=== PATIENT | female | born 1990 | race Caucasian/White ===

== ENCOUNTER → 2017-08-04 | Outpatient (CLI) | payer BC, OTHER ==
[~2017-08-04] MED LIST: ALPR0.5T PO; CYCL-331 PO; HYDR-2766 PO; OXYC-323 PO; VARE0.5T PO
== END | disposition home or self-care (01) ==
LOC: SURG 14:26
PROVIDERS: ATTEND Anesthesiology
DX: M47.896 Other spondylosis, lumbar region (principal); R51 Headache
CPT/HCPCS: 99204

== ENCOUNTER → 2017-08-04 | Outpatient (CLI) | payer BC, OTHER ==
[2017-08-04 16:59] LABS: BARBITURATES NEG (NEG); BENZODIAZEPINES POS (NEG); CANNABINOIDS NEG (NEG); COCAINE NEG (NEG); METHADONE NEG (NEG); OPIATES NEG (NEG); PHENCYCLIDINE NEG (NEG)
[2017-08-04 17:02] LABS: AMPHETAMINE/METHAMPHETAMINE POS (NEG)
== END | disposition home or self-care (01) ==
LOC: LAB 15:33
PROVIDERS: ATTEND Anesthesiology
DX: M47.896 Other spondylosis, lumbar region (principal); R51 Headache
CPT/HCPCS: 36415; 80307; G0479

== ENCOUNTER → 2018-03-18 | Outpatient (CLI) | payer BC, OTHER ==
[~2018-03-18] MED LIST changes: +BUPIVACAINE MPF 0.5% 30 ML VIAL. ONE; +LIDOCAINE 1% PF 30 ML VIAL. ONE
== END ==
LOC: SURG 11:50
PROVIDERS: ATTEND Anesthesiology Pain Medicine
DX: M47.814 Spondylosis without myelopathy or radiculopathy, thoracic region (principal); Z72.89 Other problems related to lifestyle; Z72.0 Tobacco use; Z87.39 Personal history of other diseases of the musculoskeletal system and connective tissue
CPT/HCPCS: 64490; 64491; 64492; J2001; J3490

== ENCOUNTER → 2018-05-14 | Outpatient (CLI) | payer BC ==
[~2018-05-14] MED LIST changes: -BUPIVACAINE MPF 0.5% 30 ML VIAL. ONE; -LIDOCAINE 1% PF 30 ML VIAL. ONE
== END | disposition home or self-care (01) ==
LOC: SURG 08:12
PROVIDERS: ATTEND Anesthesiology Pain Medicine
DX: M47.814 Spondylosis without myelopathy or radiculopathy, thoracic region (principal); M51.35 Other intervertebral disc degeneration, thoracolumbar region; F11.90 Opioid use, unspecified, uncomplicated; G89.4 Chronic pain syndrome; Z87.39 Personal history of other diseases of the musculoskeletal system and connective tissue
CPT/HCPCS: 99214

== ENCOUNTER 2018-09-24 07:02 | Emergency (ER) | payer BC ==
[~2018-09-24] VITALS: Ht 177.8 cm; Wt 59.3 kg
[2018-09-24 07:02] VITALS: BP 126/99
[2018-09-24] MEDS ORDERED: MELO7.5T29 PO (07:20)
[2018-09-24] MEDS ORDERED: PRED50TA PO (07:20)
[2018-09-24] MEDS ORDERED: AMOX500T PO (07:20)
--- NOTE | 2018-09-24 07:21 | PHYS DOC ---
Past History Past Medical History: Anxiety Past Surgical History: Other Additional Past Surgical Histo: back ablation 3 Smoking: Less than 1pk/day Alcohol Use: None Drug Use: None Adult General Chief Complaint Chief Complaint: SORE THROAT HPI HPI Patient is a 28 year old [female] who presents with sore throat. This started 2 days ago and has been getting worse over time. Increased pain with swallowing. MAXIMUM TEMPERATURE of 102. No significant relief with ibuprofen nor acetaminophen. Patient does have previous history of tonsillectomy. Mild nasal congestion, made worse by crying due to the pain. 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 Reports the pain is severe.[] Review of Systems Review of Systems Constitutional: Reports fever, denies chills[] Eyes: Denies change in visual acuity, redness, or eye pain [] HENT: See history of present illness[] Respiratory: Denies cough or shortness of breath [] Cardiovascular: No chest pain or palpitations[] GI: Denies abdominal pain, nausea, vomiting, bloody stools or diarrhea [] : Denies dysuria or hematuria [] Musculoskeletal: Denies back pain or joint pain [] Integument: Denies rash or skin lesions [] Neurologic: Denies headache, focal weakness or sensory changes [] Endocrine: Denies polyuria or polydipsia [] All other systems were reviewed and found to be within normal limits, except as documented in this note. Allergies Allergies Allergies Coded Allergies Type Severity Reaction Last Updated Verified sulfamethoxazole Allergy Severe Anaphylaxis 10/29/13 Yes trimethoprim Allergy Severe Anaphylaxis 10/29/13 Yes Sulfa (Sulfonamide Antibiotics) Allergy Unknown 10/29/13 Yes Physical Exam Physical Exam Constitutional: Well developed, well nourished, no acute distress, non-toxic appearance. [] HENT: Normocephalic, atraumatic, bilateral external ears normal, oropharynx moist, uvula is midline, no oral petechiae, erythema of the posterior pharynx, nose normal. [] Eyes: PERRLA, EOMI, conjunctiva normal, no discharge. [] Neck: Normal range of motion, no tenderness, supple, no stridor. [] Cardiovascular:Heart rate regular rhythm, no murmur [] Lungs & Thorax: Bilateral breath sounds clear to auscultation [] Abdomen: Not evaluated[] Skin: Warm, dry, no erythema, no rash. [] Back: No tenderness, no CVA tenderness. [] Extremities: No tenderness, no cyanosis, no clubbing, ROM intact, no edema. [] Neurologic: Alert and oriented X 3, normal motor function, normal sensory function, no focal deficits noted. [] Psychologic: Affect normal, judgement normal, mood normal. [] EKG EKG [] Radiology/Procedures Radiology/Procedures [] Course & Med Decision Making Course & Med Decision Making Pertinent Labs and Imaging studies reviewed. (See chart for details) Medical decision-making there does not appear to be a peritonsillar abscess, no meningitis or encephalitis, patient is nontoxic in appearance. ED course: Patient arrived, was placed in bed, tolerated exam well. Patient was discharged in improved condition.[] Dragon Disclaimer Dragon Disclaimer This electronic medical record was generated, in whole or in part, using a voice recognition dictation system. Departure Departure: Impression: Primary Impression: Pharyngitis Disposition: HOME, SELF-CARE Condition: GOOD Referrals: MANAN BURCH (PCP) Follow-up in 2 days Patient Instructions: Viral and Bacterial Pharyngitis Additional Instructions: Drink plenty of fluids. Follow-up with your regular doctor in 2 days. Return to the ER if worsening pain, unable to swallow, or any other concerns. Scripts Meloxicam (MELOXICAM) 7.5 Mg Tablet 7.5 MG PO DAILY for PAIN, #20 TAB Prov: YONATANSUNNI DO 09/24/18 Prednisone (PREDNISONE) 50 Mg Tablet 1 TAB PO DAILY for PHARYNGITIS, #5 TAB Prov: SUNNI TAM DO 09/24/18 Amoxicillin (AMOXICILLIN) 500 Mg Tablet 1 TAB PO TID for PHARYNGITIS, #30 TAB Prov: SUNNI TAM DO 09/24/18 Problem Qualifiers Primary Impression: Pharyngitis Pharyngitis/tonsillitis etiology: unspecified etiology Qualified Codes: J02.9 - Acute pharyngitis, unspecified SUNNI TAM DO Sep 24, 2018 07:21
== END 2018-09-24 07:24 | disposition home or self-care (01) ==
LOC: ER 07:02
DX: J02.9 Acute pharyngitis, unspecified (principal); F41.9 Anxiety disorder, unspecified; F17.200 Nicotine dependence, unspecified, uncomplicated; Z88.2 Allergy status to sulfonamides; Z88.1 Allergy status to other antibiotic agents
CPT/HCPCS: 99283

== ENCOUNTER → 2019-08-29 | Outpatient (CLI) | payer BC ==
[~2019-08-29] MED LIST changes: +AMOX500T PO; -HYDR-2766 PO; +HYDR-2769 PO; +MELO7.5T29 PO; -OXYC-323 PO; +OXYC1TAB15 PO; +PRED50TA PO
--- NOTE | 2019-08-30 13:30 | RAD ---
Right knee 3 views. HISTORY: Right knee pain 3 views were taken of the right knee. There is no fracture or osseous abnormality or joint effusion. IMPRESSION: 1. Negative right knee. Electronically signed by: Akash Stevens MD (08/30/2019 1:27 PM) [id number]
== END | disposition home or self-care (01) ==
LOC: PMG 15:54
PROVIDERS: ATTEND Registered Nurse
DX: M25.561 Pain in right knee (principal)
CPT/HCPCS: 73562

== ENCOUNTER → 2020-11-06 | Outpatient (CLI) | payer BC ==
[~2020-11-06] MED LIST changes: +CEPH500T PO
--- NOTE | 2020-11-06 08:24 | RAD ---
EXAM: Right knee, 3 views. HISTORY: Pain. COMPARISON: None. FINDINGS: 3 views of the right knee are obtained. There is no fracture, dislocation or subluxation. T here is no joint effusion. IMPRESSION: No acute osseous finding. Electronically signed by: Keira Curry MD (11/06/2020 8:22 AM) [id number]
== END ==
LOC: PMG 07:59
PROVIDERS: ATTEND Physician Assistant Medical
DX: M25.561 Pain in right knee (principal)
CPT/HCPCS: 73562

== ENCOUNTER 2021-01-22 19:59 | Emergency (ER) | payer BC ==
[~2021-01-22] VITALS: Ht 177.8 cm; Wt 72.7 kg
[~2021-01-22 19:59] MED LIST changes: -CEPH500T PO
--- NOTE | 2021-01-22 21:48 | PHYS DOC ---
Past History Past Medical History: Anxiety Past Surgical History: Other Additional Past Surgical Histo: back ablation 3 Smoking: Less than 1pk/day Alcohol Use: Occasionally Drug Use: None Adult General Chief Complaint Chief Complaint: BACK PAIN OR INJURY HPI HPI Patient is a 30yo female presenting via POV for bilateral back pain. States she is healthy without any known medical issues or daily meds. Was recently diagnosed with UTI 1 week ago and finished x5 day RX Macrobid ~3 days ago. Nonetheless, patient started developing bilateral lower back/flank pain ever since. She has persistent UTI symptoms. Denies fever, CP, SHOB, AP, incontinence, saddle anesthesia. She has no history of abnormalities Review of Systems Review of Systems Fourteen body systems of review of systems have been reviewed. See HPI for pertinent positives and negative responses, other callahan all other systems are negative, non-pertinent or non-contributory Allergies Allergies Allergies Coded Allergies Type Severity Reaction Last Updated Verified sulfamethoxazole Allergy Severe Anaphylaxis 10/29/13 Yes trimethoprim Allergy Severe Anaphylaxis 10/29/13 Yes Sulfa (Sulfonamide Antibiotics) Allergy Unknown 10/29/13 Yes Physical Exam Physical Exam Constitutional: Well developed, well nourished, mild distress, appears u ncomfortable, non-toxic appearance. HENT: Normocephalic, atraumatic, bilateral external ears normal, oropharynx moist, no oral exudates, nose normal. Eyes: PERRLA, EOMI, conjunctiva normal, no discharge. Neck: Normal range of motion, no tenderness, supple, no stridor. Cardiovascular: Heart rate regular, sinus rhythm, no murmurs rubs or gallops Lungs & Thorax: Bilateral breath sounds clear to auscultation Abdomen: Bowel sounds normal, soft, no tenderness, no guarding or rebound, no masses, no pulsatile masses. Nonsurgical abdomen, no peritoneal signs Skin: Warm, dry, no erythema, no rash. Back: No tenderness, bilateral CVA tenderness. Extremities: No tenderness, no cyanosis, no clubbing, ROM intact, no edema. Neurologic: Alert and oriented X 3, grossly normal motor & sensory function, no focal deficits noted. Psychologic: Anxious mood and affect Current Patient Data Vital Signs Vital Signs Date Time Temp Pulse Resp B/P (MAP) Pulse Ox O2 Delivery O2 Flow Rate FiO2 01/22/21 19:59 98.8 110 18 126/99 (108) 98 Room Air Vital Signs Date Time Temp Pulse Resp B/P (MAP) Pulse Ox O2 Delivery O2 Flow Rate FiO2 01/23/21 00:26 98.8 98 127/85 (99) 99 Room Air 01/22/21 19:59 18 Lab Results Laboratory Tests Test 01/22/21 21:38 01/22/21 21:40 01/22/21 22:50 Urine Collection Type Unknown Urine Color Sobeida Urine Clarity Turbid Urine pH 6.5 Urine Specific Galien 1.015 Urine Protein 100 mg/dl (NEG-TRACE) Urine Glucose (UA) Neg mg/dL (NEG) Urine Ketones (Stick) Neg mg/dL (NEG) Urine Blood Large (NEG) Urine Nitrite Pos (NEG) Urine Bilirubin Small (NEG) Urine Urobilinogen Dipstick 0.2 mg/dL (0.2 mg/dL) Urine Leukocyte Esterase Mod (NEG) Urine RBC 6-10 /HPF (0-2) Urine WBC 20-40 /HPF (0-4) Urine Squamous Epithelial Cells Occ /LPF Urine Bacteria Many /HPF (0-FEW) Urine Mucus Slight /LPF Bedside Urine HCG, Qualitative hcg negative (Negative) White Blood Count 11.5 x10^3/uL (4.0-11.0) Red Blood Count 4.31 x10^6/uL (3.50-5.40) Hemoglobin 14.0 g/dL (12.0-15.5) Hematocrit 41.4 % (36.0-47.0) Mean Corpuscular Volume 96 fL (79-100) Mean Corpuscular Hemoglobin 33 pg (25-35) Mean Corpuscular Hemoglobin Concent 34 g/dL (31-37) Red Cell Distribution Width 13.6 % (11.5-14.5) Platelet Count 190 x10^3/uL (140-400) Neutrophils (%) (Auto) 61 % (31-73) Lymphocytes (%) (Auto) 24 % (24-48) Monocytes (%) (Auto) 11 % (0-9) Eosinophils (%) (Auto) 2 % (0-3) Basophils (%) (Auto) 1 % (0-3) Neutrophils # (Auto) 7.1 x10^3uL (1.8-7.7) Lymphocytes # (Auto) 2.8 x10^3/uL (1.0-4.8) Monocytes # (Auto) 1.3 x10^3/uL (0.0-1.1) Eosinophils # (Auto) 0.2 x10^3/uL (0.0-0.7) Basophils # (Auto) 0.1 x10^3/uL (0.0-0.2) Sodium Level 137 mmol/L (136-145) Potassium Level 3.1 mmol/L (3.5-5.1) Chloride Level 99 mmol/L (98-107) Carbon Dioxide Level 32 mmol/L (21-32) Anion Gap 6 (6-14) Blood Urea Nitrogen 5 mg/dL (7-20) Creatinine 0.6 mg/dL (0.6-1.0) Estimated GFR (Cockcroft-Gault) 115.9 Glucose Level 85 mg/dL (70-99) Calcium Level 8.9 mg/dL (8.5-10.1) EKG EKG [] Radiology/Procedures Radiology/Procedures [] Heart Score C/O Chest Pain: No Risk Factors: Risk Factors: DM, Current or recent (<one month) smoker, HTN, HLP, family history of CAD, obesity. Risk Scores: Risk Factors: DM, Current or recent (<one month) smoker, HTN, HLP, family history of CAD, obesity. Course & Med Decision Making Course & Med Decision Making Afebrile patient with HPI and PE concerning for pyelonephritis ER workup performed and indicative of pyelonephritis. Discussed potential need for CT imaging; however, joint decision to defer at this time Patient responded to ER intervention that included IV pain medication and Keflex. Discussed inpatient vs outpatient mgmt. She is ambulatory and tolerating PO, she is wanting to go home with PO antibiotics and close outpatient follow- up which is reasonable RX Keflex, instructions to use NSAIDs/tylenol PRN pain, cyclobenzaprine for PRN muscle spasms, and close PCP follow-up instructed I did disclose further imaging studies and/or need for IV intervention could be required. Strict return precautions were discussed at length with good understanding, all questions and concerns addressed prior to departure Dragon Disclaimer Dragon Disclaimer This electronic medical record was generated, in whole or in part, using a voice recognition dictation system. Departure Departure: Impression: Primary Impression: Pyelonephritis Disposition: 01 DC HOME SELF CARE/HOMELESS Condition: IMPROVED Referrals: MANAN BURCH (PCP) Patient Instructions: Pyelonephritis, Adult Additional Instructions: You were seen for sequelae of a urinary tract infection that is concerning for pyelonephritis or otherwise known as a kidney infection. Please continue to take newly prescribed antibiotics as prescribed. Follow up with primary care as discussed prior to ER departure for repeat evaluation by the end of the week. You should return to the ED if you develop worsening pain, fever, flank pain, or any other new or concerning symptoms. Scripts Cephalexin (CEPHALEXIN) 500 Mg Tablet 2 TAB PO BID for PYELONEPHRITIS for 10 Days, #40 TAB Prov: SHAKIRA GLASGOW DO 01/23/21 SHAKIRA GLASGOW DO Jan 22, 2021 21:48
[2021-01-22 22:19] LABS: BACTERIA,URINE MANY /HPF (0-FEW); BILIRUBIN,URINE SMALL (NEG); CLARITY,URINE TURBID; COLOR,URINE AMBER; GLUCOSE,URINE NEG (NEG); NITRITE,URINE POS (NEG); SQUAMOUS EPITHELIAL CELL,UR OCC /LPF; UROBILINOGEN,URINE 0.2 mg/dL (0.2 mg/dL); WBC,URINE 20-40 /HPF (0-4)
[2021-01-22] MEDS ORDERED: MORPHINE SULFATE 4 MG/ML DISP.SYRIN. ONE (22:44)
[2021-01-22] MEDS ORDERED: MORPHINE SULFATE 4 MG/ML DISP.SYRIN. IV ONE (22:45)
[2021-01-22 23:11] LABS: BASO # 0.1 x10^3/uL (0.0-0.2); BASO % 1 % (0-3); EOS # 0.2 x10^3/uL (0.0-0.7); EOS % 2 % (0-3); HEMATOCRIT 41.4 % (36.0-47.0); LYMPH # 2.8 x10^3/uL (1.0-4.8); LYMPH % 24 % (24-48); MEAN CORPUSCULAR HEMOGLOBIN 33 pg (25-35); MEAN CORPUSCULAR HGB CONC 34 g/dL (31-37); MEAN CORPUSCULAR VOLUME 96 fL (79-100); MONO # 1.3 x10^3/uL (0.0-1.1); MONO % 11 % (0-9); NEUT # 7.1 x10^3uL (1.8-7.7); NEUT % 61 % (31-73); PLATELET COUNT 190 x10^3/uL (140-400); RED BLOOD COUNT 4.31 x10^6/uL (3.50-5.40); RED CELL DISTRIBUTION WIDTH 13.6 % (11.5-14.5); WHITE BLOOD COUNT 11.5 x10^3/uL (4.0-11.0)
[2021-01-22 23:20] LABS: CALCIUM 8.9 mg/dL (8.5-10.1); CREATININE 0.6 mg/dL (0.6-1.0); GFR 115.9; POTASSIUM 3.1 mmol/L (3.5-5.1)
[2021-01-23] MEDS ORDERED: CEPHALEXIN 250 MG CAPSULE PO ONE
[2021-01-23] MEDS ORDERED: CEPH500T PO (00:07)
[2021-01-23] MEDS ORDERED: MORPHINE SULFATE 4 MG/ML DISP.SYRIN. IV ONE (00:15)
[2021-01-23 00:26] VITALS: BP 127/85
[2021-01-23] MEDS ORDERED: CYCLOBENZAPRINE 10MG 4TABLET STARTPACK PO ONE ×2 (00:36→00:45)
[2021-01-23] MEDS ORDERED: POTASSIUM CHLORIDE 20 MEQ TABLET.ER. PO ONE (00:45)
== END 2021-01-23 00:20 | disposition home or self-care (01) ==
LOC: ER 19:59
DX: N12 Tubulo-interstitial nephritis, not specified as acute or chronic (principal); F41.9 Anxiety disorder, unspecified; F17.200 Nicotine dependence, unspecified, uncomplicated; Z88.2 Allergy status to sulfonamides; Z88.1 Allergy status to other antibiotic agents
CPT/HCPCS: 36415; 80048; 81001; 81025; 85025; 87086; 96374; 96376; 99284; J2270

== ENCOUNTER 2021-05-12 11:19 | Emergency (ER) | payer BC ==
[~2021-05-12] VITALS: Ht 177.8 cm; Wt 66.6 kg
[~2021-05-12 11:19] MED LIST changes: +CEPH500T PO
[2021-05-12] MEDS ORDERED: IV NORMAL SALINE 1,000ML 1,000 ML IV SCH (12:00)
[2021-05-12] MEDS ORDERED: MVI, ADULT NO.4 WITH VIT K 10 ML, FOLIC ACID INJ 1 MG, THIAMINE INJ 100 MG in IV NORMAL... IV ONE (12:00)
[2021-05-12] MEDS ORDERED: METOCLOPRAMIDE HCL 10 MG/2 ML VIAL. IVP ONE (12:00)
[2021-05-12] MEDS ORDERED: FAMOTIDINE 20 MG/2 ML VIAL IVP ONE (12:00)
[2021-05-12 12:07] LABS: BASO # 0.1 x10^3/uL (0.0-0.2); BASO % 1 % (0-3); EOS % 0 % (0-3); HEMATOCRIT 46.9 % (36.0-47.0); HEMOGLOBIN 16.1 g/dL (12.0-15.5); LYMPH # 1.8 x10^3/uL (1.0-4.8); LYMPH % 18 % (24-48); MEAN CORPUSCULAR HEMOGLOBIN 33 pg (25-35); MEAN CORPUSCULAR HGB CONC 34 g/dL (31-37); MEAN CORPUSCULAR VOLUME 97 fL (79-100); MONO # 1.1 x10^3/uL (0.0-1.1); MONO % 11 % (0-9); NEUT % 70 % (31-73); PLATELET COUNT 261 x10^3/uL (140-400); RED BLOOD COUNT 4.85 x10^6/uL (3.50-5.40); RED CELL DISTRIBUTION WIDTH 13.3 % (11.5-14.5)
[2021-05-12 12:14] LABS: CALCIUM 9.7 mg/dL (8.5-10.1); CREATININE 0.9 mg/dL (0.6-1.0); GFR 72.6; POTASSIUM 3.2 mmol/L (3.5-5.1)
[2021-05-12 12:20] LABS: ACETAMIN < 2.0 mcg/mL (10-30); SALIC < 2.8 mg/dL (2.8-20.0)
[2021-05-12 12:21] LABS: ALBUMIN 3.4 g/dL (3.4-5.0); DIRECT BILIRUBIN 1.2 mg/dL (0.0-0.2); TOTAL BILIRUBIN 2.3 mg/dL (0.2-1.0); TOTAL PROTEIN 7.6 g/dL (6.4-8.2)
--- NOTE | 2021-05-12 12:33 | EKG ---
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
--- NOTE | 2021-05-12 12:45 | RAD ---
Exam Date: 05/12/2021 12:03 PM XR CHEST 1V Indication: Reason: epigastric pain / Spl. Instructions: / History: . FINDINGS/ IMPRESSION: The cardiac silhouette and pulmonary vasculature are within normal limits. There is no focal consolidation, pleural effusion or pneumothorax. The visualized osseous structures are intact. Electronically signed by: Wayne Blackwood MD (05/12/2021 12:43 PM) [facility]
--- NOTE | 2021-05-12 12:45 | RAD ---
Exam Date: 05/12/2021 12:[address] HEAD AND C-SPINE WO Indication: Reason: hand cramps / Spl. Instructions: / History: . One or more of the following dose reduction techniques were utilized: *Automated exposure control (AEC) *Adjustment of mA and/or kV according to patient size *Use of iterative reconstruction technique *CT scan done according to ALARA, or ALARA/IMAGE GENTLY EXAMINATION: CT OF THE HEAD WITHOUT CONTRAST INDICATION: Trauma, head injury, headache; TECHNIQUE: Noncontrast helical axial CT images of the head were obtained. FINDINGS: The ventricles and sulci are normal for the patient's stated age. There is no evidence of acute int racranial hemorrhage, extra-axial collection, mass effect, midline shift, or acute territorial infarc t. No lesion of the skull base or the calvarium is seen. The visualized paranasal sinuses, mastoid ai r cells, and orbits are normal in appearance. IMPRESSION: No evidence for acute intracranial abnormality. EXAMINATION: CT OF THE CERVICAL SPINE WITHOUT CONTRAST Clinical Indication: Cervical spine pain after trauma Technique: Thin cut helical axial CT images through the cervical spine were obtained without contrast on a multi-detector CT scanner. Source data was then reconstructed into sagittal and coronal planes. Findings: Alignment is maintained without spondylolisthesis. Vertebral body heights are maintained without acute fracture. Disc spaces are preserved. No signific ant prevertebral soft tissue swelling is demonstrated. No severe central canal stenosis is seen. Impression: No evidence of acute cervical spine fracture or subluxation. Electronically signed by: Wayne Blackwood MD (05/12/2021 12:43 PM) [facility]
--- NOTE | 2021-05-12 12:51 | RAD ---
Exam Date: 05/12/2021 12:03 PM XR EXAM OF ANKLE_RIGHT 3VIEWS, XR FOOT_RIGHT 3 VIEWS Indication: Reason: bruise-unknown injury mechanism / Spl. Instructions: / History: . FINDINGS/ IMPRESSION: There is a dorsal fragmented osteophyte along the navicular which appears chronic. There is no signi ficant overlying soft tissue swelling at this site to suggest acute injury. Ankle mortise is intact. There is a 3 x 1 mm calcification along the proximal and lateral corner of the cuboid, seen only on the oblique view, which could represent an avulsion of indeterminate age. Visualized osseous struct ures are otherwise intact. Alignment is maintained. Soft tissues are normal. Electronically signed by: Wayne Blackwood MD (05/12/2021 12:49 PM) [facility]
--- NOTE | 2021-05-12 14:11 | PHYS DOC ---
Past History Past Medical History: Anxiety Past Surgical History: No Surgical History Additional Past Surgical Histo: back ablation 3 Smoking: Less than 1pk/day Alcohol Use: Occasionally Drug Use: None General Adult EDM: Chief Complaint: MULTIPLE COMPLAINTS HPI: HPI: 30 yo F PMH anxiety and tobacco use, presents the ED with complaints of cramping in both hands stating " I feel like they are stuck in this position, am I having a stroke?" Patient reports she drank a large amount of alcohol on Thursday, work on Thursday but had multiple episodes of nonbloody nonbilious vomiting. No complaints of upper abdominal pain stating "I think it's cause I vomited so much." Patient denies any associated fever, chills, nuchal rigidity, blurry vision, sensorimotor deficits, head injury, neck pain, hemoptysis, or hematemesis. Does not feel as if she was roofies or sexually assaulted, has a safe place to return home to. Reports painful bruise over right foot, unsure how it occured but states bruising on her right thigh, "that's been there awhile." Review of Systems: Review of Systems: Constitutional: Denies fever or chills Eyes: Denies change in visual acuity HENT: Denies nasal congestion or sore throat Respiratory: Denies cough or shortness of breath Cardiovascular: Denies chest pain or edema GI: Denies bloody stools or diarrhea : Denies dysuria or vaginal bleeding Musculoskeletal: Denies back pain or joint deformity Integument: Denies rash or diaphoresis Neurologic: Denies headache, neck pain, focal weakness or sensory changes Endocrine: Denies polyuria or polydipsia Lymphatic: Denies swollen glands Psychiatric: Denies depression or anxiety Current Medications: Current Meds: Current Medications Medications (Trade) Dose Ordered Sig/Thomas Start Time Stop Time Status Last Admin Dose Admin Famotidine (Pepcid Vial) 20 mg 1X ONCE 05/12/21 12:00 05/12/21 12:07 DC 05/12/21 12:00 20 MG Metoclopramide HCl (Reglan Vial) 10 mg 1X ONCE 05/12/21 12:00 05/12/21 12:07 DC 05/12/21 12:00 10 MG Multivitamins/ Minerals 10 ml/ Folic Acid 1 mg/ Thiamine HCl 100 mg/Sodium Chloride 1,011.3 ml @ 1,000.187 mls/hr 1X ONCE 05/12/21 12:00 05/12/21 13:00 DC 05/12/21 12:00 1,000.187 MLS/HR Sodium Chloride 1,000 ml @ 1,000 mls/hr Q1H 05/12/21 12:00 05/12/21 12:59 DC 05/12/21 12:00 1,000 MLS/HR Allergies: Allergies: Allergies Coded Allergies Type Severity Reaction Last Updated Verified sulfamethoxazole Allergy Severe Anaphylaxis 10/29/13 Yes trimethoprim Allergy Severe Anaphylaxis 10/29/13 Yes Sulfa (Sulfonamide Antibiotics) Allergy Unknown 10/29/13 Yes Physical Exam: PE: Constitutional: Unkept disheveled appearance, appears malnourished, afebrile, and in no distress HENT: Normocephalic, atraumatic, very dry mucous membranes Eyes: EOMI, conjunctiva normal, no discharge. Neck: Normal range of motion, supple, Cardiovascular: S1/2 present, tachycardic Lungs & Thorax: Speaking in full sentences, bilateral equal chest rise, no tachypnea or increased work of breathing Abdomen: soft, no reproducible tenderness, no peritoneal signs, no Gonzalez's sign, no McBurney's point tenderness Skin: Warm, dry, yellow contusion of the right thigh approximately 10 x 10 cm, multiple small contusions over both extremities, large contusion approximately 80 to 90% of dorsal aspect of right foot, Back: No midline step-offs or tenderness, no CVA tenderness, no contusions on back or chest or abdomen or upper extremity Extremities: no cyanosis, no lower extremity edema, DP/PT intact, equal radial pulses, no plantar ecchymosis, no joint deformities, no pain at right malleoli lateral or medial/right fibular head or knee, both hands with finger stuck in flexion-can extend-no decreased range of motion Neurologic: Alert and oriented X 3, normal motor function, normal sensory function, no focal deficits noted. [] Psychologic: Affect normal, judgement normal, mood normal. [] Nexus C-spine criteria are negative: There is no post midline tenderness, the patient is not intoxicated, there is a normal level of alertness, there are no focal neurologic deficits and there are no distracting injuries. Current Patient Data: Labs: Laboratory Tests Test 7/11/21 11:30 White Blood Count 10.0 x10^3/uL (4.0-11.0) Red Blood Count 4.85 x10^6/uL (3.50-5.40) Hemoglobin 16.1 g/dL (12.0-15.5) H Hematocrit 46.9 % (36.0-47.0) Mean Corpuscular Volume 97 fL (79-100) Mean Corpuscular Hemoglobin 33 pg (25-35) Mean Corpuscular Hemoglobin Concent 34 g/dL (31-37) Red Cell Distribution Width 13.3 % (11.5-14.5) Platelet Count 261 x10^3/uL (140-400) Neutrophils (%) (Auto) 70 % (31-73) Lymphocytes (%) (Auto) 18 % (24-48) L Monocytes (%) (Auto) 11 % (0-9) H Eosinophils (%) (Auto) 0 % (0-3) Basophils (%) (Auto) 1 % (0-3) Neutrophils # (Auto) 7.0 x10^3uL (1.8-7.7) Lymphocytes # (Auto) 1.8 x10^3/uL (1.0-4.8) Monocytes # (Auto) 1.1 x10^3/uL (0.0-1.1) Eosinophils # (Auto) 0.0 x10^3/uL (0.0-0.7) Basophils # (Auto) 0.1 x10^3/uL (0.0-0.2) Sodium Level 145 mmol/L (136-145) Potassium Level 3.2 mmol/L (3.5-5.1) L Chloride Level 93 mmol/L (98-107) L Carbon Dioxide Level 37 mmol/L (21-32) H Anion Gap 15 (6-14) H Blood Urea Nitrogen 4 mg/dL (7-20) L Creatinine 0.9 mg/dL (0.6-1.0) Estimated GFR (Cockcroft-Gault) 72.6 Glucose Level 125 mg/dL (70-99) H Calcium Level 9.7 mg/dL (8.5-10.1) Total Bilirubin 2.3 mg/dL (0.2-1.0) H Direct Bilirubin 1.2 mg/dL (0.0-0.2) H Aspartate Amino Transferase (AST) 134 U/L (15-37) H Alanine Aminotransferase (ALT) 87 U/L (14-59) H Alkaline Phosphatase 323 U/L (46-116) H Creatine Kinase 878 U/L (26-192) H Troponin I Quantitative < 0.017 ng/mL (0-0.055) Total Protein 7.6 g/dL (6.4-8.2) Albumin 3.4 g/dL (3.4-5.0) Lipase 72 U/L (73-393) L Salicylates Level < 2.8 mg/dL (2.8-20.0) L Salicylate Last Dose Date Unknown Salicylate Last Dose Time Unknown Acetaminophen Level < 2.0 mcg/mL (10-30) L Acetaminophen Last Dose Date Unknown Acetaminophen Last Dose Time Unknown Vital Signs: Vital Signs Date Time Temp Pulse Resp B/P (MAP) Pulse Ox O2 Delivery O2 Flow Rate FiO2 05/12/21 12:52 77 18 125/73 (90) 97 Room Air 05/12/21 11:20 98.1 EKG: EKG: Sinus tachycardia 113 bpm, no axis deviation, QTC 496, poor baseline, reports no active chest pain Radiology/Procedures: Radiology/Procedures: IMAGING REPORT Signed PATIENT: SHE ONEILL ACCOUNT: [id number] : 1990 LOCATION: ER AGE: 30 SEX: F EXAM STATUS: REG ER ORD. PHYSICIAN: MANAN CARPENTER DO REASON: hand cramps PROCEDURE: CT HEAD AND CERVICAL SPINE WO Exam Date: 05/12/2021 12:[address] HEAD AND C-SPINE WO Indication: Reason: hand cramps / Spl. Instructions: / History: . One or more of the following dose reduction techniques were utilized: *Automated exposure control (AEC) *Adjustment of mA and/or kV according to patient size *Use of iterative reconstruction technique *CT scan done according to ALARA, or ALARA/IMAGE GENTLY EXAMINATION: CT OF THE HEAD WITHOUT CONTRAST INDICATION: Trauma, head injury, headache; TECHNIQUE: Noncontrast helical axial CT images of the head were obtained. FINDINGS: The ventricles and sulci are normal for the patient's stated age. There is no evidence of acute intracranial hemorrhage, extra-axial collection, mass effect, midline shift, or acute territorial infarct. No lesion of the skull base or the calvarium is seen. The visualized paranasal sinuses, mastoid air cells, and orbits are normal in appearance. IMPRESSION: No evidence for acute intracranial abnormality. EXAMINATION: CT OF THE CERVICAL SPINE WITHOUT CONTRAST Clinical Indication: Cervical spine pain after trauma Technique: Thin cut helical axial CT images through the cervical spine were obtained without contrast on a multi-detector CT scanner. Source data was then reconstructed into sagittal and coronal planes. Findings: Alignment is maintained without spondylolisthesis. Vertebral body heights are maintained without acute fracture. Disc spaces are preserved. No significant prevertebral soft tissue swelling is demonstrated. No severe central canal stenosis is seen. Impression: No evidence of acute cervical spine fracture or subluxation. Electronically signed by: Wero Blackwood MD (05/12/2021 12:43 PM) [facility] DICTATED AND SIGNED BY: WERO BLACKWOOD MD DATE: 05/12/21 1240 CC: MANAN BURCH; MANAN CARPENTER DO ~MTH0 0 IMAGING REPORT Signed PATIENT: SHE ONEILL ACCOUNT: [id number] : 1990 LOCATION: ER AGE: 30 SEX: F EXAM STATUS: REG ER ORD. PHYSICIAN: MANAN CARPENTER DO REASON: epigastric pain PROCEDURE: CHEST AP ONLY Exam Date: 05/12/2021 12:03 PM XR CHEST 1V Indication: Reason: epigastric pain / Spl. Instructions: / History: . FINDINGS/ IMPRESSION: The cardiac silhouette and pulmonary vasculature are within normal limits. There is no focal consolidation, pleural effusion or pneumothorax. The visualized osseous structures are intact. Electronically signed by: Wero Blackwood MD (05/12/2021 12:43 PM) [facility] DICTATED AND SIGNED BY: WERO BLACKWOOD MD DATE: 05/12/21 1243 CC: MANAN BURCH; MANAN CARPENTER DO ~MTH0 0 IMAGING REPORT Signed PATIENT: SHE ONEILL ACCOUNT: [id number] : 1990 LOCATION: ER AGE: 30 SEX: F EXAM STATUS: REG ER ORD. PHYSICIAN: MANAN CARPENTER DO REASON: bruise-unknown injury mechanism PROCEDURE: ANKLE RIGHT 3V Exam Date: 05/12/2021 12:03 PM XR EXAM OF ANKLE_RIGHT 3VIEWS, XR FOOT_RIGHT 3 VIEWS Indication: Reason: bruise-unknown injury mechanism / Spl. Instructions: / History: . FINDINGS/ IMPRESSION: There is a dorsal fragmented osteophyte along the navicular which appears chronic. There is no significant overlying soft tissue swelling at this site to suggest acute injury. Ankle mortise is intact. There is a 3 x 1 mm calcification along the proximal and lateral corner of the cuboid, seen only on the oblique view, which could represent an avulsion of indeterminate age. Visualized osseous structures are otherwise intact. Alignment is maintained. Soft tissues are normal. Electronically signed by: Wero Blackwood MD (05/12/2021 12:49 PM) [facility] DICTATED AND SIGNED BY: WERO BLACKWOOD MD DATE: 05/12/21 1243 CC: MANAN BURCH; MANAN CARPENTER DO ~MTH0 0 Heart Score: C/O Chest Pain: No Risk Factors: Risk Factors: DM, Current or recent (<one month) smoker, HTN, HLP, family history of CAD, obesity. Risk Scores: Score 0 - 3: 2.5% MACE over next 6 weeks - Discharge Home Score 4 - 6: 20.3% MACE over next 6 weeks - Admit for Clinical Observation Score 7 - 10: 72.7% MACE over next 6 weeks - Early Invasive Strategies Course & Med Decision Making: Course & Med Decision Making Pertinent Labs and Imaging studies reviewed. (See chart for details) Concern for recent alcohol binge drinking and vomiting, constant dehydration, no dialysis, elevated liver function, but no renal injury. Tachycardia resolved in ED after IV fluids. Patient reports pain in her hands is almost completely resolved, is now rested and well appearing, moist mucous membranes. Will dc home with odt zofran and hydration instructions -advised to avoid heavy alcohol use. Will discharge home with strict ED return precautions were given for intractable nausea or vomiting, fever, worsening pain or neurologic deficits. Encouraged urgent outpatient follow-up with PMD for follow-up. Life-threatening processes were considered but are low suspicion at this time, given history, physical exam and ED workup. Pt was educated on all prescription medications and adverse effects. All patient's questions were answered and pt was stable at time of discharge. Life/limb-threatening differential includes but is not limited to, trauma (fracture, dislocation, laceration, compartment syndrome, tendon or ligament injury), neurovascular injury or deficitcva/tia, infection (osteomyelitis, abscess, cellulitis, septic arthritis, necrotizing fasciitis), deep vein thrombosis, renal/cardiac/liver disease, medication adverse effect, lymphedema/anasarca, vascular insufficiency or malignancy, I have spoken with the patient and/or caregivers. I explained the patient's condition, diagnoses and treatment plan based on the information available to me at this time. I have answered the patient and/or caregiver's questions and addressed any concerns. The patient and/or caregivers have a good understanding of patient's diagnosis, condition and treatment plan as can be expected at this point. Vital signs have been stable. Patient's condition is stable and appropriate for discharge from the emergency department. Patient will pursue further outpatient evaluation with primary care physician or other designated or consulting physician as outlined in the discharge instructions. The patient and/or caregivers are agreeable to this plan of care and follow-up instructions have been explained in detail. The patient and/or caregivers have received these instructions in written form and have expressed an understanding of the discharge instructions. The patient and/or caregivers are aware that any significant change of condition or worsening of symptoms should prompt immediate return to this or the closest emergency department or call to 911. Jessee Disclaimer: Jessee Disclaimer: This electronic medical record was generated, in whole or in part, using a voice recognition dictation system. Departure Departure: Impression: Primary Impression: Rhabdomyolysis Additional Impressions: Hand cramps Multiple leg contusions Disposition: HOME / SELF CARE / HOMELESS Condition: STABLE Referrals: MANAN BURCH (PCP) in 1-2 days for re-evaluation Patient Instructions: Dehydration, Adult, Muscle Cramps, Rhabdomyolysis Additional Instructions: EMERGENCY DEPARTMENT GENERAL DISCHARGE INSTRUCTIONS Thank you for coming to [facility] (ED) today and trusting us with you care. We trust that you had a positivie experience in our Emergency Department. If you wish to speak to the department management, you may call the director at [phone]. YOUR FOLLOW UP INSTRUCTIONS ARE FOLLOWS: 1. Do you have a private Doctor? If you do not have a private doctor, please ask for a resource list of physicians or clinics that may be able to assist you with follow up care. 2. The Emergency Physician has interpreted your x-rays. The X-Ray specialist will also review them. If there is a change in the findings, you will be notified in 48 hours when at all possible. 3. A lab test or culture has been done, your results will be reviewed and you will be notified if you need a change in treatment. ADDITIONAL INSTRUCTIONS AND INFORMATION: 1. Your care today has been supervised by a physician who is specially trained in emergency care. Many problems require more than one evaluation for a complete diagnosis and treatment. We recommend that you schedule your follow up appointment as recommended to ensure complete treatment of you illness or injury. If you are unable to obtain follow up care and continue to have a problem, or if your condition worsens, we recommend that you return to the ED. 2. We are not able to safely determine your condition over the phone nor are we able to give sound medical advice over the phone. For these safety reasons, if you call for medical advice we will ask you to come to the ED for further evaluation. 3. If you have any questions regarding these discharge instructions please call the ED at [phone]. SAFETY INFORMATION: In the interest of safety, wellness, and injury prevention; we encourage you to wear your sealbelt, if you smoke; quite smoking, and we encourage family to use a protective helmet for bicycling and other sporting events that present an increased risk for head injury. IF YOUR SYMPTOMS WORSEN OR NEW SYMPTOMS DEVELOP, OR YOU HAVE CONCERNS ABOUT YOUR CONDITION; OR IF YOUR CONDITION WORSENS WHILE YOU ARE WAITING FOR YOUR FOLLOW UP APPOINTMENT; EITHER CONTACT YOUR PRIMARY CARE DOCTOR, THE PHYSICIAN WHOSE NAME AND NUMBER YOU WERE GIVEN, OR RETURN TO THE ED IMMEDIATELY. Scripts Ondansetron (ONDANSETRON ODT) 4 Mg Tab.rapdis 4 MG PO Q6HRS for Nausea/Vomiting, #15 TAB Prov: MANAN CARPENTER DO 05/12/21 MANAN CARPENTER DO May 12, 2021 14:11
[2021-05-12] MEDS ORDERED: IV NORMAL SALINE 1,000ML 1,000 ML IV ONE (14:15)
[2021-05-12] MEDS ORDERED: ONDA4TAB12 PO (15:42)
[2021-05-12] MEDS ORDERED: KETOROLAC 30 MG/ML VIAL. IVP ONE (15:45)
[2021-05-12 16:00] VITALS: BP 137/99
[2021-05-12] MEDS ORDERED: ONDANSETRON ODT 4 MG TAB.RAPDIS PO ONE (16:00)
== END 2021-05-12 16:50 | disposition home or self-care (01) ==
LOC: ER 11:19
DX: S70.11XA Contusion of right thigh, initial encounter (principal); S90.31XA Contusion of right foot, initial encounter; M62.82 Rhabdomyolysis; R25.2 Cramp and spasm; F41.9 Anxiety disorder, unspecified; Z88.2 Allergy status to sulfonamides; Z88.1 Allergy status to other antibiotic agents; X58.XXXA Exposure to other specified factors, initial encounter; Y93.89 Activity, other specified; Y92.89 Other specified places as the place of occurrence of the external cause; Y99.8 Other external cause status
CPT/HCPCS: 36415; 70450; 71045; 72125; 73610; 73630; 80048; 80076; 80329; 82550; 83690; 84484; 85025; 93005; 96365; 96366; 96375; 99285; G0480; J1885; J2765; J3490; J7030; Q0162

== ENCOUNTER 2021-05-20 23:53 | Emergency (ER) | payer BC ==
[~2021-05-20 23:53] MED LIST changes: +ONDA4TAB12 PO
--- NOTE | 2021-05-20 23:56 | PHYS DOC ---
Past History Past Medical History: Alcoholism, Anxiety Past Surgical History: No Surgical History Additional Past Surgical Histo: back ablation 3 Smoking: Less than 1pk/day Alcohol Use: Occasionally Drug Use: None General Adult HPI: HPI: ". ... I am drunk.. and tripped over couch.. my friend called the ambulance on me... I don't want to be seen or have a work up... Patient is a 30 year old female who presents with above hx and complaints alcohol use. Pt. refuses exam or evaluation. Demands discharge. Pt. left in care of her friend. Patient is amatory without problems. Slightly discoordinated. No obvious injury. Patient denies any syncopal event. Does admit to heavy alcohol use tonight. At first states she only drank 2 beers but later stated she probably drank too much. Patient does have a past history of anxiety and alcohol abuse. Patient does smoke a pack a day. Has past history of alcohol abuse. Patient states she is not currently interested in any alcohol abuse program. Patient insistent that she does not want an evaluation or work-up. Review of Systems: Review of Systems: Constitutional: Denies fever or chills Eyes: Denies change in visual acuity HENT: Denies nasal congestion or sore throat Respiratory: Denies cough or shortness of breath Cardiovascular: Denies chest pain or edema GI: Denies abdominal pain, nausea, vomiting, bloody stools or diarrhea : Denies dysuria Musculoskeletal: Denies back pain or joint pain. Denies any injury Integument: Denies rash Neurologic: Denies headache, focal weakness or sensory changes . Endocrine: Denies polyuria or polydipsia Lymphatic: Denies swollen glands Psychiatric: Denies depression or anxiety Family History: Family History: Not currently available Current Medications: Current Meds: See nursing for home meds Allergies: Allergies: Allergies Coded Allergies Type Severity Reaction Last Updated Verified sulfamethoxazole Allergy Severe Anaphylaxis 10/29/13 Yes trimethoprim Allergy Severe Anaphylaxis 10/29/13 Yes Sulfa (Sulfonamide Antibiotics) Allergy Unknown 10/29/13 Yes Physical Exam: PE: Constitutional: , no acute distress, appears to be intoxicated with alcoholic beverage inappearance. [] HENT: Normocephalic, atraumatic, bilateral external ears normal, oropharynx moist, no oral exudates, nose normal. [] Eyes: PERRLA, EOMI, conjunctiva mild injection,, no discharge. [] Neck: Normal range of motion, no tenderness, supple, no stridor. [] Cardiovascular:Heart rate regular rhythm, no murmur [] Lungs & Thorax: Bilateral breath sounds equal apex with few scattered wheezes on auscultation [] Abdomen: Bowel sounds normal, soft, no tenderness, no masses, no pulsatile masses. [] Skin: Warm, dry, no erythema, no rash. [] Back: No tenderness, no CVA tenderness. [] Extremities: No tenderness, no cyanosis, no clubbing, ROM intact, some ecchymosis and edema of right foot /ankle. Neurologic: Alert and oriented X 3, moves all extremities. Ambulatory without problems, appears to have distal sensory,, no focal deficits noted. [] Psychologic: Affect normal, judgement appears to have some impairment due to alcohol but aware risk of Limited work work-up or evaluation. Patient refusing any care or evaluation. , mood normal. [] EKG: EKG: Refused [] Radiology/Procedures: Radiology/Procedures: Refused [] Heart Score: C/O Chest Pain: N/A Risk Factors: Risk Factors: DM, Current or recent (<one month) smoker, HTN, HLP, family history of CAD, obesity. Risk Scores: Score 0 - 3: 2.5% MACE over next 6 weeks - Discharge Home Score 4 - 6: 20.3% MACE over next 6 weeks - Admit for Clinical Observation Score 7 - 10: 72.7% MACE over next 6 weeks - Early Invasive Strategies Course & Med Decision Making: Course & Med Decision Making Pertinent Labs and Imaging studies reviewed. (See chart for details) Patient persistent and her refusal to be have any evaluation or treatment. Currently denies any pain or discomfort. Did review her chart of 05/12/21. Encourage patient avoid further alcohol at night. Return if any concerns. Patient discharged to the care of her friend. Impression: 1. Alcohol intoxication 2. History of trip and fall over a couch [] Jessee Disclaimer: Jessee Disclaimer: This electronic medical record was generated, in whole or in part, using a voice recognition dictation system. Departure Departure: Referrals: MANAN BURCH (PCP) Jessee Disclaimer This chart was dictated in whole or in part using Voice Recognition software in a busy, high-work load, and often noisy Emergency Department environment. It may contain unintended and wholly unrecognized errors or omissions. MARÍA ELENA RAPP MD May 20, 2021 23:56
[2021-05-22] MEDS ORDERED: NITR100C62 PO (14:38)
[2021-05-22] MEDS ORDERED: PHEN-318 PO (14:38)
== END 2021-05-21 00:15 | disposition home or self-care (01) ==
LOC: ER 23:53
DX: F10.229 Alcohol dependence with intoxication, unspecified (principal); F41.9 Anxiety disorder, unspecified; F17.200 Nicotine dependence, unspecified, uncomplicated; Z88.2 Allergy status to sulfonamides; Z88.1 Allergy status to other antibiotic agents; Y90.9 Presence of alcohol in blood, level not specified; W01.0XXA Fall on same level from slipping, tripping and stumbling without subsequent striking against object, initial encounter; Y93.89 Activity, other specified; Y92.89 Other specified places as the place of occurrence of the external cause; Y99.8 Other external cause status
CPT/HCPCS: 99283

== ENCOUNTER 2021-05-22 12:03 | Emergency (ER) | payer BC ==
[~2021-05-22] VITALS: Ht 177.8 cm; Wt 66.6 kg
[2021-05-22] MEDS ORDERED: IV NORMAL SALINE 1,000ML 1,000 ML IV ONE (12:15)
[2021-05-22] MEDS ORDERED: KETOROLAC 15 MG/ML VIAL. IVP ONE (12:15)
[2021-05-22 13:02] LABS: BASO # 0.1 x10^3/uL (0.0-0.2); BASO % 1 % (0-3); EOS # 0.2 x10^3/uL (0.0-0.7); EOS % 3 % (0-3); HEMATOCRIT 41.5 % (36.0-47.0); HEMOGLOBIN 13.9 g/dL (12.0-15.5); LYMPH # 2.1 x10^3/uL (1.0-4.8); LYMPH % 28 % (24-48); MEAN CORPUSCULAR HEMOGLOBIN 33 pg (25-35); MEAN CORPUSCULAR HGB CONC 34 g/dL (31-37); MEAN CORPUSCULAR VOLUME 99 fL (79-100); MONO # 0.9 x10^3/uL (0.0-1.1); MONO % 11 % (0-9); NEUT # 4.3 x10^3uL (1.8-7.7); NEUT % 57 % (31-73); PLATELET COUNT 214 x10^3/uL (140-400); RED BLOOD COUNT 4.18 x10^6/uL (3.50-5.40); RED CELL DISTRIBUTION WIDTH 13.4 % (11.5-14.5); WHITE BLOOD COUNT 7.7 x10^3/uL (4.0-11.0)
[2021-05-22 13:12] LABS: CALCIUM 8.6 mg/dL (8.5-10.1); CREATININE 0.6 mg/dL (0.6-1.0); GFR 115.9; POTASSIUM 3.6 mmol/L (3.5-5.1)
--- NOTE | 2021-05-22 13:14 | PHYS DOC ---
Past History Past Medical History: Alcoholism, Anxiety Past Surgical History: No Surgical History Additional Past Surgical Histo: back ablation 3 Smoking: Less than 1pk/day Alcohol Use: Occasionally Drug Use: None General Adult EDM: Chief Complaint: ABNORMAL LABS HPI: HPI: Patient is a 30-year-old female who presents with right flank pain. Patient states "I was seen a week ago in the emergency room and diagnosed with rhabdo". "I feel like I have had urinary retention and stabbing pain when I pee". "The pain in my right side has been so bad it is waking me up in the middle the night and became nauseous. Patient states that she is taking Tylenol and Zofran for pain and nausea. Patient states that she has a history of kidney stones, alcoholism, anxiety. Review of Systems: Review of Systems: ROS At least 10 ROS systems have been reviewed and are negative except as documented in the HPI. Current Medications: Current Meds: Current Medications Medications (Trade) Dose Ordered Sig/Thomas Start Time Stop Time Status Last Admin Dose Admin Ketorolac Tromethamine (Toradol 15mg Vial) 15 mg 1X ONCE 05/22/21 12:15 05/22/21 12:19 DC 05/22/21 12:45 15 MG Sodium Chloride 1,000 ml @ 1,000 mls/hr 1X ONCE 05/22/21 12:15 05/22/21 13:14 05/22/21 12:46 1,000 MLS/HR Allergies: Allergies: Allergies Coded Allergies Type Severity Reaction Last Updated Verified sulfamethoxazole Allergy Severe Anaphylaxis 05/22/21 Yes trimethoprim Allergy Severe Anaphylaxis 05/22/21 Yes Sulfa (Sulfonamide Antibiotics) Allergy Unknown 05/22/21 Yes Physical Exam: PE: General: Appears well, non toxic, and comfortable Skin: Warm, dry. Normal for ethnicity. HEENT: Atraumatic. PERRLA. Moist mucous membranes. Neck: Trachea midline. Normal ROM. Respiratory: Normal WOB. CTAB w/o w/r/r. No tachypnea. Cardiovascular: Regular rate and rhythm. Normal peripheral perfusion. No edema. Abdomen: Soft. Non tender. No distension. Back: Normal ROM. Musculoskeletal: No swelling or deformity. Neuro: Alert and oriented x 4. MAEE. Psych: Normal affect and mood. Current Patient Data: Labs: Laboratory Tests Test 05/22/21 12:46 POC Urine HCG, Qualitative hcg negative (Negative) Vital Signs: Vital Signs Date Time Temp Pulse Resp B/P (MAP) Pulse Ox O2 Delivery O2 Flow Rate FiO2 05/22/21 12:16 98.2 93 15 137/99 100 Room Air EKG: EKG: Sinus rhythm, heart rate 80 bpm [] Radiology/Procedures: Radiology/Procedures: [] Heart Score: C/O Chest Pain: No Risk Factors: Risk Factors: DM, Current or recent (<one month) smoker, HTN, HLP, family history of CAD, obesity. Risk Scores: Score 0 - 3: 2.5% MACE over next 6 weeks - Discharge Home Score 4 - 6: 20.3% MACE over next 6 weeks - Admit for Clinical Observation Score 7 - 10: 72.7% MACE over next 6 weeks - Early Invasive Strategies Course & Med Decision Making: Course & Med Decision Making Pertinent Labs and Imaging studies reviewed. (See chart for details) [] 30-year-old female presents with right flank pain. Patient was seen 1 week ago in the emergency room diagnosed with rhabdo. Patient is complaining of dysuria and retention. Patient also reports that pain is causing her nausea and vomiting. Patient given 4 mg morphine, 4 mg of Zofran, NS bolus. CT of abdomen pelvis ordered to rule out kidney stone. Patient states that she has history of kidney stone. Urine was positive for leuks. Patient sent home with a prescription for Macrobid and Pyridium. Patient given 1 dose of Pyridium in the emergency room. Patient to increase fluids. Patient should follow up with PCP if symptoms continue. Discussed return precautions with patient. Jessee Disclaimer: Jessee Disclaimer: This electronic medical record was generated, in whole or in part, using a voice recognition dictation system. Departure Departure: Impression: Primary Impression: UTI (urinary tract infection) Qualified Codes: N30.00 - Acute cystitis without hematuria Disposition: HOME / SELF CARE / HOMELESS Condition: STABLE Referrals: MANAN BURCH (PCP) Patient Instructions: Urinary Tract Infection, [id number] Additional Instructions: You were seen in the emergency room for urinary retention and pain with urination. Your urine was positive for infection. Sending you home with a prescription for Macrobid to treat the UTI. Please increase your fluids. Return to emergency room for worsening symptoms or concerns with EMERGENCY DEPARTMENT GENERAL DISCHARGE INSTRUCTIONS Thank you for coming to [facility] (ED) today and trusting us with you care. We trust that you had a positivie experience in our Emergency Department. If you wish to speak to the department management, you may call the director at [phone]. YOUR FOLLOW UP INSTRUCTIONS ARE FOLLOWS: 1. Do you have a private Doctor? If you do not have a private doctor, please ask for a resource list of physicians or clinics that may be able to assist you with follow up care. 2. The Emergency Physician has interpreted your x-rays. The X-Ray specialist will also review them. If there is a change in the findings, you will be notified in 48 hours when at all possible. 3. A lab test or culture has been done, your results will be reviewed and you will be notified if you need a change in treatment. ADDITIONAL INSTRUCTIONS AND INFORMATION: 1. Your care today has been supervised by a physician who is specially trained in emergency care. Many problems require more than one evaluation for a complete diagnosis and treatment. We recommend that you schedule your follow up appointment as recommended to ensure complete treatment of you illness or injury. If you are unable to obtain follow up care and continue to have a problem, or if your condition worsens, we recommend that you return to the ED. 2. We are not able to safely determine your condition over the phone nor are we able to give sound medical advice over the phone. For these safety reasons, if you call for medical advice we will ask you to come to the ED for further evaluation. 3. If you have any questions regarding these discharge instructions please call the ED at [phone]. SAFETY INFORMATION: In the interest of safety, wellness, and injury prevention; we encourage you to wear your sealbelt, if you smoke; quite smoking, and we encourage family to use a protective helmet for bicycling and other sporting events that present an increased risk for head injury. IF YOUR SYMPTOMS WORSEN OR NEW SYMPTOMS DEVELOP, OR YOU HAVE CONCERNS ABOUT YOUR CONDITION; OR IF YOUR CONDITION WORSENS WHILE YOU ARE WAITING FOR YOUR FOLLOW UP APPOINTMENT; EITHER CONTACT YOUR PRIMARY CARE DOCTOR, THE PHYSICIAN WHOSE NAME AND NUMBER YOU WERE GIVEN, OR RETURN TO THE ED IMMEDIATELY. Scripts Phenazopyridine Hcl (PYRIDIUM) 200 Mg Tablet 1 TAB PO TID for urinary discomfort for 3 Days, #9 TAB 0 Refills Prov: JOSIANE SILVERIO APRN 05/22/21 Nitrofurantoin Monohyd/M-Cryst (MACROBID 100 MG CAPSULE) 100 Mg Capsule 100 CAP PO BID for UTI for 5 Days, #1000 CAP Prov: JOSIANE SILVERIO APRN 05/22/21 JOSIANE SILVERIO APRN May 22, 2021 13:14
[2021-05-22 13:18] LABS: ALBUMIN 2.9 g/dL (3.4-5.0); ALBUMIN/GLOBULIN RATIO 0.8 (1.0-1.7); TOTAL PROTEIN 6.4 g/dL (6.4-8.2)
[2021-05-22 13:20] LABS: COLOR,URINE YELLOW
[2021-05-22 13:21] LABS: BACTERIA,URINE 0 /HPF (0-FEW); BILIRUBIN,URINE NEG (NEG); CLARITY,URINE CLEAR; GLUCOSE,URINE NEG (NEG); NITRITE,URINE NEG (NEG); RBC,URINE OCC /HPF (0-2); SQUAMOUS EPITHELIAL CELL,UR MOD /LPF; UROBILINOGEN,URINE 0.2 mg/dL (0.2 mg/dL)
[2021-05-22] MEDS ORDERED: ONDANSETRON PF 4 MG/2 ML VIAL. IVP ONE (13:30)
[2021-05-22] MEDS ORDERED: MORPHINE SULFATE 4 MG/ML DISP.SYRIN. IV ONE (13:30)
[2021-05-22 13:37] LABS: MAGNESIUM 1.9 mg/dL (1.8-2.4); PHOSPHORUS 2.7 mg/dL (2.6-4.7); URIC ACID 3.9 mg/dL (2.6-6.0)
--- NOTE | 2021-05-22 14:05 | RAD ---
INDICATION: Reason: r flank pain / Spl. Instructions: / History: . COMPARISON: None. TECHNIQUE: Axial CT images obtained through the abdomen and pelvis without contrast. One or more of the following individualized dose reduction techniques were utilized for this examinat ion: 1. Automated exposure control; 2. Adjustment of the mA and/or kV according to patient size; 3 . Use of iterative reconstruction technique. FINDINGS: Mild groundglass opacity at left lung base. Could be atelectasis Abdominal aorta is not aneurysmal. Liver is low density which can be seen with fatty infiltration. No peripancreatic fluid collection. Spleen mildly prominent in size. No hydronephrosis. Urinary bladder is partially Intrauterine device. No periappendiceal inflammatory changes. Scattered. Degenerative changes the spine with multilevel central canal and neural foraminal stenosis. IMPRESSION: * No evidence of bowel obstruction, hydronephrosis or appendicitis. Electronically signed by: Napoleon Bermudez MD (05/22/2021 2:02 PM) [id number]
[2021-05-22] MEDS ORDERED: NITR100C62 PO (14:38)
[2021-05-22] MEDS ORDERED: PHEN-318 PO (14:38)
[2021-05-22] MEDS ORDERED: PHENAZOPYRIDINE 200 MG TABLET. PO ONE (14:45)
[2021-05-22 15:40] VITALS: BP 137/99
--- NOTE | 2021-05-23 07:06 | EKG ---
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
== END 2021-05-22 14:25 | disposition home or self-care (01) ==
LOC: ER 12:03
DX: N30.00 Acute cystitis without hematuria (principal); F17.200 Nicotine dependence, unspecified, uncomplicated; F10.20 Alcohol dependence, uncomplicated; Z88.2 Allergy status to sulfonamides; Z88.1 Allergy status to other antibiotic agents; Y90.9 Presence of alcohol in blood, level not specified
CPT/HCPCS: 36415; 74176; 80053; 81001; 81025; 82553; 83735; 84100; 84550; 85025; 87086; 93005; 96361; 96374; 96375; 99285; J1885; J2270; J2405; J7030

== ENCOUNTER 2021-07-03 12:57 | Emergency (ER) | payer BC ==
[~2021-07-03] VITALS: Ht 177.8 cm; Wt 66.6 kg
[~2021-07-03 12:57] MED LIST changes: +NITR100C62 PO; +PHEN-318 PO
[2021-07-03] MEDS ORDERED: IBUPROFEN 600 MG TABLET. PO ONE (14:30)
--- NOTE | 2021-07-03 14:34 | PHYS DOC ---
Past History Past Medical History: Alcoholism, Anxiety Past Surgical History: No Surgical History Additional Past Surgical Histo: back ablation 3 Smoking: Less than 1pk/day Additional Smoking Information: 1/2 PACK Alcohol Use: Occasionally Drug Use: None General Adult EDM: Chief Complaint: CHEST PAIN HPI: HPI: Patient is a 30-year-old female presents with chest wall pain. Patient states t hat pain started at 1030 this morning. Patient states that substernal chest pain that has moved to her left arm pit. Pain is reproducible. Worse with movement and palpitation. Denies nausea/vomiting. Denies shortness of breath or cough. Patient has history of anxiety. Half a pack a day smoker. Review of Systems: Review of Systems: Constitutional: Denies fever or chills Eyes: Denies change in visual acuity HENT: Denies nasal congestion or sore throat Respiratory: Denies cough or shortness of breath Cardiovascular: Reports chest pain GI: Denies abdominal pain, nausea, vomiting, bloody stools or diarrhea : Denies dysuria Musculoskeletal: Denies back pain or joint pain Integument: Denies rash Neurologic: Denies headache, focal weakness or sensory changes Endocrine: Denies polyuria or polydipsia Lymphatic: Denies swollen glands Psychiatric: Denies depression or anxiety Current Medications: Current Meds: Current Medications Medications (Trade) Dose Ordered Sig/Thomas Start Time Stop Time Status Last Admin Dose Admin Ibuprofen (Motrin) 600 mg 1X ONCE 07/03/21 14:30 07/03/21 14:31 UNV Allergies: Allergies: Allergies Coded Allergies Type Severity Reaction Last Updated Verified sulfamethoxazole Allergy Severe Anaphylaxis 05/22/21 Yes trimethoprim Allergy Severe Anaphylaxis 05/22/21 Yes Sulfa (Sulfonamide Antibiotics) Allergy Unknown 05/22/21 Yes Physical Exam: PE: Constitutional: Well developed, well nourished, no acute distress, non-toxic appearance. [] HENT: Normocephalic, atraumatic, bilateral external ears normal, oropharynx moist, no oral exudates, nose normal. [] Eyes: PERRLA, EOMI, conjunctiva normal, no discharge. [] Neck: Normal range of motion, no tenderness, supple, no stridor. [] Cardiovascular:Heart rate regular rhythm, no murmur [] Lungs & Thorax: Bilateral breath sounds clear to auscultation [] Abdomen: Bowel sounds normal, soft, no tenderness, no masses, no pulsatile masses. [] Skin: Warm, dry, no erythema, no rash. [] Back: No tenderness, no CVA tenderness. [] Extremities: No tenderness, no cyanosis, no clubbing, ROM intact, no edema. [] Neurologic: Alert and oriented X 3, normal motor function, normal sensory function, no focal deficits noted. [] Psychologic: Affect normal, judgement normal, mood normal. [] Current Patient Data: Vital Signs: Vital Signs Date Time Temp Pulse Resp B/P (MAP) Pulse Ox O2 Delivery O2 Flow Rate FiO2 07/03/21 13:20 98.2 86 16 137/99 98 Room Air EKG: EKG: [] Normal sinus rhythm. Heart rate 79 bpm Radiology/Procedures: Radiology/Procedures: [] Heart Score: C/O Chest Pain: Yes HEART Score for Chest Pain: HEART Score for Chest Pain Response (Comments) Value History Slighlty/Non-Suspicious 0 ECG Normal 0 Age < 45 0 Risk Factors No Risk Factors 0 Total 0 Risk Factors: Risk Factors: DM, Current or recent (<one month) smoker, HTN, HLP, family history of CAD, obesity. Risk Scores: Score 0 - 3: 2.5% MACE over next 6 weeks - Discharge Home Score 4 - 6: 20.3% MACE over next 6 weeks - Admit for Clinical Observation Score 7 - 10: 72.7% MACE over next 6 weeks - Early Invasive Strategies Course & Med Decision Making: Course & Med Decision Making Pertinent Labs and Imaging studies reviewed. (See chart for details) [] 30-year-old female presents with chest wall pain that started at 1030 this morning. Patient states that pain started as substernal and moved to her left armpit. Pain is reproducible. EKG shows normal sinus rhythm. Troponin is negative. Discussed results with patient. Explained to patient she most likely has chest wall pain. Ibuprofen and Tylenol at home for discomfort. Follow-up with PCP. Patient given strict return precautions. Patient is hemodynamically stable upon disposition. Dragon Disclaimer: Dragon Disclaimer: This electronic medical record was generated, in whole or in part, using a voice recognition dictation system. Departure Departure: Impression: Primary Impression: Chest wall pain Disposition: HOME / SELF CARE / HOMELESS Condition: STABLE Referrals: MANAN BURCH (PCP) Patient Instructions: Chest Pain (Nonspecific), [id number] Additional Instructions: You are seen in the emergency room for chest wall pain. Your EKG was unremarkable. Troponin level was negative. Ibuprofen and Tylenol for pain. This pain may take a little while to resolve. Follow-up with your PCP. Return emergency room if you have worsening symptoms or concerns. EMERGENCY DEPARTMENT GENERAL DISCHARGE INSTRUCTIONS Thank you for coming to [facility] (ED) today and trusting us with you care. We trust that you had a positivie experience in our Emergency Department. If you wish to speak to the department management, you may call the director at [phone]. YOUR FOLLOW UP INSTRUCTIONS ARE FOLLOWS: 1. Do you have a private Doctor? If you do not have a private doctor, please ask for a resource list of physicians or clinics that may be able to assist you with follow up care. 2. The Emergency Physician has interpreted your x-rays. The X-Ray specialist will also review them. If there is a change in the findings, you will be notified in 48 hours when at all possible. 3. A lab test or culture has been done, your results will be reviewed and you will be notified if you need a change in treatment. ADDITIONAL INSTRUCTIONS AND INFORMATION: 1. Your care today has been supervised by a physician who is specially trained in emergency care. Many problems require more than one evaluation for a complete diagnosis and treatment. We recommend that you schedule your follow up appointment as recommended to ensure complete treatment of you illness or injury. If you are unable to obtain follow up care and continue to have a problem, or if your condition worsens, we recommend that you return to the ED. 2. We are not able to safely determine your condition over the phone nor are we able to give sound medical advice over the phone. For these safety reasons, if you call for medical advice we will ask you to come to the ED for further evaluation. 3. If you have any questions regarding these discharge instructions please call the ED at [phone]. SAFETY INFORMATION: In the interest of safety, wellness, and injury prevention; we encourage you to wear your sealbelt, if you smoke; quite smoking, and we encourage family to use a protective helmet for bicycling and other sporting events that present an increased risk for head injury. IF YOUR SYMPTOMS WORSEN OR NEW SYMPTOMS DEVELOP, OR YOU HAVE CONCERNS ABOUT YOUR CONDITION; OR IF YOUR CONDITION WORSENS WHILE YOU ARE WAITING FOR YOUR FOLLOW UP APPOINTMENT; EITHER CONTACT YOUR PRIMARY CARE DOCTOR, THE PHYSICIAN WHOSE NAME AND NUMBER YOU WERE GIVEN, OR RETURN TO THE ED IMMEDIATELY. JOSIANE SILVERIO APRN Jul 03, 2021 14:34
--- NOTE | 2021-07-03 14:35 | EKG ---
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
[2021-07-03 14:49] VITALS: BP 128/77
--- NOTE | 2021-07-03 14:59 | RAD ---
AP chest. HISTORY: Chest pain AP view was taken of the chest. Heart is normal in size. There is no pleural effusion. Lungs are harjinder r. IMPRESSION: 1. No acute chest disease. Electronically signed by: Akash Stevens MD (07/03/2021 2:57 PM) [facility]
== END 2021-07-03 15:53 | disposition home or self-care (01) ==
LOC: ER 13:01
DX: R07.89 Other chest pain (principal); Z88.2 Allergy status to sulfonamides; F17.200 Nicotine dependence, unspecified, uncomplicated
CPT/HCPCS: 36415; 71045; 84484; 93005; 99285-25

== ENCOUNTER → 2021-10-14 | Outpatient (CLI) | payer BC ==
[~2021-10-14] MED LIST changes: -CYCL-331 PO; +CYCL10TA19 PO
--- NOTE | 2021-10-14 15:10 | RAD ---
XR KNEE 3 VIEWS_RT History: Reason: RIGHT KNEE PAIN / Spl. Instructions: / History: Technique: 3 views right knee Comparison: None. Findings: No dislocation. No acute fracture. No significant knee joint effusion. Impression: 1. No acute osseous abnormality. Electronically signed by: Michael Sin DO (10/14/2021 3:08 PM) [id number]
== END ==
LOC: RAD 14:30
PROVIDERS: ATTEND Nurse Practitioner Family
DX: M25.561 Pain in right knee (principal)
CPT/HCPCS: 73562

== ENCOUNTER 2021-11-08 04:56 | Emergency (ER) | payer BC ==
[~2021-11-08] VITALS: Ht 177.8 cm; Wt 63.4 kg
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
[2021-11-08] MEDS ORDERED: IV RINGERS SOLUTION,LACTATED 1,000 ML IV SCH (05:45)
[2021-11-08] MEDS ORDERED: ACETAMINOPHEN 500 MG TABLET PO ONE (06:00)
[2021-11-08] MEDS ORDERED: ONDANSETRON ODT 4 MG TAB.RAPDIS PO ONE (06:00)
--- NOTE | 2021-11-08 06:24 | EKG ---
[address] [address] Test Date: 2021-11-08 Test Time: 06:15:49 Pat Name: SHE ONEILL Department: Room: Gender: F [employer] L[employer]: : 1990 Requested By: MARÍA ELENA RAPP Order Number: [id number] Reading MD: Pedro Duckworth Measurements Intervals [place] Rate: 86 P: 43 W[place]: 140 QRS: 76 QRSD: 80 T: 69 QT: 368 QTc: 443 Interpretive Statements SINUS RHYTHM NORMAL ECG RI6.02 Compared to ECG 07/03/2021 13:07:13 No significant changes Electronically Signed On 11-08-2021 14:24:17 POST GRADUATE INTERN by Pedro Duckworth
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
[2021-11-08 07:13] LABS: BASO # 0.1 x10^3/uL (0.0-0.2); BASO % 1 % (0-3); EOS # 0.3 x10^3/uL (0.0-0.7); EOS % 4 % (0-3); HEMATOCRIT 48.1 % (36.0-47.0); HEMOGLOBIN 16.5 g/dL (12.0-15.5); LYMPH # 3.5 x10^3/uL (1.0-4.8); LYMPH % 43 % (24-48); MEAN CORPUSCULAR HEMOGLOBIN 34 pg (25-35); MEAN CORPUSCULAR HGB CONC 34 g/dL (31-37); MEAN CORPUSCULAR VOLUME 99 fL (79-100); MONO # 0.8 x10^3/uL (0.0-1.1); MONO % 10 % (0-9); NEUT # 3.3 x10^3uL (1.8-7.7); NEUT % 42 % (31-73); PLATELET COUNT 202 x10^3/uL (140-400); RED BLOOD COUNT 4.86 x10^6/uL (3.50-5.40); RED CELL DISTRIBUTION WIDTH 13.3 % (11.5-14.5)
[2021-11-08 07:19] LABS: BARBITURATES NEG (NEG); BENZODIAZEPINES NEG (NEG); CANNABINOIDS NEG (NEG); COCAINE NEG (NEG); METHADONE NEG (NEG); OPIATES NEG (NEG); PHENCYCLIDINE NEG (NEG)
[2021-11-08 07:20] VITALS: BP 122/87
[2021-11-08 07:21] LABS: AMPHETAMINE/METHAMPHETAMINE NEG (NEG)
[2021-11-08 07:25] LABS: AMORPHOUS SEDIMENT,UR PRESENT /HPF; BACTERIA,URINE 0 /HPF (0-FEW); BILIRUBIN,URINE SMALL (NEG); CLARITY,URINE CLEAR; COLOR,URINE AMBER; GLUCOSE,URINE NEG (NEG); HYALINE CASTS, URINE OCC /HPF; NITRITE,URINE NEG (NEG); RBC,URINE RARE /HPF (0-2); SQUAMOUS EPITHELIAL CELL,UR FEW /LPF
[2021-11-08 07:27] LABS: CALCIUM 8.2 mg/dL (8.5-10.1); CREATININE 0.5 mg/dL (0.6-1.0); GFR 142.1; POTASSIUM 3.1 mmol/L (3.5-5.1)
[2021-11-08 07:33] LABS: ALBUMIN 3.2 g/dL (3.4-5.0); DIRECT BILIRUBIN 0.3 mg/dL (0.0-0.2); TOTAL BILIRUBIN 0.7 mg/dL (0.2-1.0); TOTAL PROTEIN 7.4 g/dL (6.4-8.2)
== END 2021-11-08 07:35 | disposition home or self-care (01) ==
LOC: ER 04:56
DX: S00.83XA Contusion of other part of head, initial encounter (principal); R04.0 Epistaxis; M54.2 Cervicalgia; R07.89 Other chest pain; F10.20 Alcohol dependence, uncomplicated; F41.9 Anxiety disorder, unspecified; F17.200 Nicotine dependence, unspecified, uncomplicated; R79.89 Other specified abnormal findings of blood chemistry; Y90.9 Presence of alcohol in blood, level not specified; Y08.89XA Assault by other specified means, initial encounter; Y93.89 Activity, other specified; Y92.89 Other specified places as the place of occurrence of the external cause; Y99.8 Other external cause status
CPT/HCPCS: 36415; 70450; 70486; 71046; 72125; 80048; 80076; 80307; 81001; 82550; 83735; 84484; 84702; 85025; 85379; 85610; 85730; 93005; 96360; 99285; G0480; J7120; Q0162

== ENCOUNTER 2022-03-05 09:56 | Emergency (ER) | payer BC ==
[~2022-03-05] VITALS: Ht 177.8 cm; Wt 55.6 kg
[2022-03-05 10:10] VITALS: BP 152/88
[2022-03-05 10:58] LABS: BASO # 0.1 x10^3/uL (0.0-0.2); BASO % 1 % (0-3); EOS # 0.1 x10^3/uL (0.0-0.7); EOS % 1 % (0-3); HEMATOCRIT 48.8 % (36.0-47.0); HEMOGLOBIN 16.7 g/dL (12.0-15.5); LYMPH # 1.8 x10^3/uL (1.0-4.8); LYMPH % 24 % (24-48); MEAN CORPUSCULAR HEMOGLOBIN 33 pg (25-35); MEAN CORPUSCULAR HGB CONC 34 g/dL (31-37); MEAN CORPUSCULAR VOLUME 98 fL (79-100); MONO # 0.8 x10^3/uL (0.0-1.1); MONO % 10 % (0-9); NEUT # 4.9 x10^3uL (1.8-7.7); NEUT % 64 % (31-73); PLATELET COUNT 241 x10^3/uL (140-400); RED CELL DISTRIBUTION WIDTH 13.2 % (11.5-14.5); WHITE BLOOD COUNT 7.6 x10^3/uL (4.0-11.0)
[2022-03-05 11:16] LABS: CLARITY,URINE HAZY; COLOR,URINE YELLOW; GLUCOSE,URINE 100 mg/dL (NEG); NITRITE,URINE NEG (NEG); UROBILINOGEN,URINE 0.2 mg/dL (0.2 mg/dL)
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
[2022-03-05] MEDS ORDERED: IV NORMAL SALINE 1,000ML 1,000 ML IV ONE (12:30)
[2022-03-05 13:23] LABS: CALCIUM 8.7 mg/dL (8.5-10.1); CREATININE 0.6 mg/dL (0.6-1.0); GFR 115.1
[2022-03-05] MEDS ORDERED: NITR100C62 PO (13:51)
[2022-03-05] MEDS ORDERED: POTASSIUM CHLORIDE 20 MEQ TABLET.ER. PO ONE ×2 (14:00)
== END 2022-03-05 14:07 | disposition home or self-care (01) ==
LOC: ER 09:56
DX: E86.0 Dehydration (principal); N30.00 Acute cystitis without hematuria; F10.20 Alcohol dependence, uncomplicated; F41.9 Anxiety disorder, unspecified; F17.200 Nicotine dependence, unspecified, uncomplicated; Z88.2 Allergy status to sulfonamides; Z88.1 Allergy status to other antibiotic agents; Y90.9 Presence of alcohol in blood, level not specified
CPT/HCPCS: 36415; 80048; 81003; 82550; 85025; 96360; 96361; 99283; J7030